=== PATIENT | female | born 1975 | race Caucasian/White ===

== ENCOUNTER 2022-06-17 09:26 | Outpatient (CLI) | payer BC, SELFPAY ==
[2022-06-17 09:47] LABS: Basophils Percent Auto 0.1 % (0.2-1.2); Eosinophils Percent Auto 0.4 % (0-4.4); Hematocrit 44.3 % (37.0-47.0); Hemoglobin 14.5 g/dL (12.0-15.0); Immature Granulocyte Absolute 0.01 K/mm3 (0.00-0.031); Immature Granulocyte Percent A 0.1 % (0-0.5); Lymphocytes Absolute Auto 2.61 K/mm3 (0.9-3.2); Lymphocytes Percent Auto 33.3 % (18.3-44.2); Mean Corpuscular HGB Conc 32.7 g/dl (32-36); Mean Corpuscular Hemoglobin 29.5 pg (26-34); Mean Corpuscular Volume 90.2 fl (80-100); Mean Platelet Volume 7.7 fl (7.4-10.4); Monocytes Absolute Auto 0.6 K/mm3 (0.1-0.6); Monocytes Percent Auto 7.2 % (2.6-8.5); Neutrophils Absolute Auto 4.6 K/mm3 (1.3-6.7); Neutrophils Percent Auto 58.9 % (45.5-73.1); Platelet Count Result 369 k/mm3 (150-375); Red Blood Count 4.91 M/mm3 (4.2-5.4); Red Cell Distribution Width 13.1 % (11.5-14.5); White Blood Count 7.8 K/mm3 (4.5-10.0)
[2022-06-17 11:05] LABS: Iron 53 ug/dL (37-170)
[2022-06-17 11:07] LABS: Alanine Aminotransferase 28 U/L (6-35); Albumin Level 4.7 g/dL (3.5-5.1); Alkaline Phosphatase 105 U/L (38-126); Anion Gap 7 mmol/L (8-16); Aspartate Amino Transferase 22 U/L (14-36); Bilirubin,Total 0.6 mg/dL (0.2-1.3); Blood Urea Nitrogen 16 mg/dL (7-17); Calcium 9.8 mg/dL (8.4-10.2); Carbon Dioxide 31 mmol/L (22-30); Chloride 99 mmol/L (98-107); Estimated Glomerular Filt Rate > 60; Glucose 153 mg/dL (65-110); Lactate Dehydrogenase 150 U/L (120-246); Potassium 4.5 mmol/L (3.4-5.0); Sodium 137 mmol/L (137-145)
[2022-06-17 11:15] LABS: Percent Iron Saturation 15 % (20-50)
[2022-06-17 12:13] LABS: Folic Acid 7.1 ng/mL (2.76->20)
[2022-06-22 11:18] LABS: Methylmalonic Acid 120 nmol/L (87-318)
== END 2022-06-17 09:27 | disposition home or self-care (01) ==
PROVIDERS: PCP Internal Medicine; Visit Provider Internal Medicine Hematology & Oncology
DX: D64.9 Anemia, unspecified (principal)
CPT/HCPCS: 36415; 80053; 82607; 82728; 82746; 83540; 83550; 83615; 83921; 84443; 85025

== ENCOUNTER 2022-07-21 15:37 | Outpatient (CLI) | payer BC, SELFPAY ==
[2022-07-21 16:43] LABS: IFOB Positive Control Positive; Immunochemical Fecal Occult Bl Negative (N)
== END 2022-07-21 15:38 | disposition home or self-care (01) ==
LOC: ANHLAB 15:39
PROVIDERS: PCP Internal Medicine; Visit Provider Internal Medicine Hematology & Oncology
DX: D64.9 Anemia, unspecified (principal)
CPT/HCPCS: 82274

== ENCOUNTER 2023-01-04 09:18 | Outpatient (CLI) | payer BC, SELFPAY ==
--- NOTE | ~2023-01-04 | CT_ITS ---
CT of the Abdomen and Pelvis: Indication: Renal vein thrombosis Technique: 2.5 mm axial scans were obtained through the abdomen and pelvis following intravenous adm inistration of 100 cc of Omnipaque 350. Dose reduction technique was used on this scan by utilizing a utomated exposure control and iterative reconstruction technique. The dose-length product (DLP) was 1 575.39 mGy-cm. Findings: Scans through the lung bases are unremarkable. The liver, spleen, pancreas, gallbladder, adrenals and kidneys are within normal limits. No evidence for renal vein thrombosis. No evidence of aortic aneurysm. No lymphadenopathy. No bowel obstruction or bowel wall thickening. There is no evidence to suggest acute appendicitis. Images through the pelvis were performed. Urinary bladder unremarkable. IUD in place. 3.9 cm left ova scottie cyst present. No ascites. Impression: No evidence for renal vein thrombosis on the current exam. 3.9 cm left ovarian cyst. Reviewed, dictated and finalized at [facility]. Impression: No evidence for renal vein thrombosis on the current exam. 3.9 cm left ovarian cyst.
[2023-01-04 10:28] LABS: Estimated Glomerular Filt Rate > 60
[2023-01-04 12:21] LABS: Alanine Aminotransferase 70 U/L (6-35); Albumin Level 4.8 g/dL (3.5-5.1); Alkaline Phosphatase 111 U/L (38-126); Anion Gap 10 mmol/L (8-16); Aspartate Amino Transferase 45 U/L (14-36); Bilirubin,Total 0.6 mg/dL (0.2-1.3); Blood Urea Nitrogen 19 mg/dL (7-17); Calcium 9.7 mg/dL (8.4-10.2); Carbon Dioxide 26 mmol/L (22-30); Chloride 101 mmol/L (98-107); Cholesterol 140 mg/dL (0-200); Estimated Glomerular Filt Rate > 60; Glucose 105 mg/dL (65-110); HDL Direct 51 mg/dL; Potassium 4.2 mmol/L (3.4-5.0); Sodium 137 mmol/L (137-145); Triglycerides 108 mg/dL (<150)
[2023-01-04 12:33] LABS: LDL Cholesterol Direct 67 mg/dL
[2023-01-04 14:34] LABS: Hemoglobin A1C 6.2 % (<5.7)
== END 2023-01-04 09:19 | disposition home or self-care (01) ==
PROVIDERS: PCP Internal Medicine; Visit Provider Internal Medicine Hematology & Oncology
DX: E55.9 Vitamin D deficiency, unspecified (principal); E78.5 Hyperlipidemia, unspecified; E11.9 Type 2 diabetes mellitus without complications; I82.3 Embolism and thrombosis of renal vein; N83.202 Unspecified ovarian cyst, left side
CPT/HCPCS: 74177; 80053; 80061; 82306; 83036; 84443; Q9967

== ENCOUNTER 2023-02-16 13:32 | Outpatient (CLI) | payer BC, SELFPAY ==
[2023-02-16 14:06] LABS: Basophils Percent Auto 0.3 % (0.2-1.2); Eosinophils Absolute Auto 0.1 K/mm3 (0-0.3); Eosinophils Percent Auto 1.2 % (0-4.4); Hematocrit 45.4 % (37.0-47.0); Hemoglobin 15.2 g/dL (12.0-15.0); Immature Granulocyte Absolute 0.01 K/mm3 (0.00-0.031); Immature Granulocyte Percent A 0.1 % (0-0.5); Lymphocytes Absolute Auto 2.43 K/mm3 (0.9-3.2); Lymphocytes Percent Auto 32.3 % (18.3-44.2); Mean Corpuscular HGB Conc 33.5 g/dl (32-36); Mean Corpuscular Hemoglobin 30.6 pg (26-34); Mean Corpuscular Volume 91.3 fl (80-100); Mean Platelet Volume 7.7 fl (7.4-10.4); Monocytes Absolute Auto 0.6 K/mm3 (0.1-0.6); Monocytes Percent Auto 8.1 % (2.6-8.5); Neutrophils Absolute Auto 4.4 K/mm3 (1.3-6.7); Platelet Count Result 335 k/mm3 (150-375); Red Blood Count 4.97 M/mm3 (4.2-5.4); White Blood Count 7.5 K/mm3 (4.5-10.0)
[2023-02-16 17:08] LABS: Immunoglobulin A 376 mg/dL (70-400); Immunoglobulin G 1374 mg/dL (700-1600); Immunoglobulin M 208 mg/dL (40-230)
[2023-02-18 19:33] LABS: Homocysteine 5.9 umol/L (<10.4)
[2023-02-18 21:00] LABS: Kappa\\Lambda Light Chains 1.63 (0.26-1.65); Lambda Light Chain 13.3 mg/L (5.7-26.3)
[2023-02-18 21:13] LABS: Lupus dRVVT Screen 35 sec (<=45); PTT-LA Screen 39 sec (<=40)
[2023-02-19 21:42] LABS: Antithrombin III Activity 128 % normal (80-135)
[2023-02-21 17:11] LABS: Albumin 3.8 g/dL (3.8-4.8); Alpha 1 Globulin 0.3 g/dL (0.2-0.3); Alpha 2 Globulin 0.9 g/dL (0.5-0.9); Beta 1 Globulin 0.6 g/dL (0.4-0.6); Gamma Globulin 1.4 g/dL (0.8-1.7); Protein, Total 7.5 g/dL (6.1-8.1)
[2023-02-22 15:23] LABS: Factor V (Leiden) Mutation NEGATIVE
== END 2023-02-16 13:33 | disposition home or self-care (01) ==
LOC: ANHLAB 13:35
PROVIDERS: PCP Internal Medicine; Visit Provider Internal Medicine Hematology & Oncology
DX: I82.3 Embolism and thrombosis of renal vein (principal); R77.9 Abnormality of plasma protein, unspecified
CPT/HCPCS: 36415; 81240; 81241; 82784; 83090; 83883; 84155; 84165; 85025; 85300; 85303; 85306; 85613; 85730; 86146

== ENCOUNTER 2023-06-28 15:22 | Outpatient (CLI) | payer BC, SELFPAY ==
[2023-06-28 15:43] LABS: Basophils Percent Auto 0.2 % (0.2-1.2); Eosinophils Absolute Auto 0.1 K/mm3 (0-0.3); Eosinophils Percent Auto 0.8 % (0-4.4); Hematocrit 41.1 % (37.0-47.0); Hemoglobin 13.8 g/dL (12.0-15.0); Immature Granulocyte Absolute 0.02 K/mm3 (0.00-0.031); Immature Granulocyte Percent A 0.2 % (0-0.5); Lymphocytes Absolute Auto 2.93 K/mm3 (0.9-3.2); Lymphocytes Percent Auto 31.5 % (18.3-44.2); Mean Corpuscular HGB Conc 33.6 g/dl (32-36); Mean Corpuscular Volume 92.4 fl (80-100); Mean Platelet Volume 7.7 fl (7.4-10.4); Monocytes Absolute Auto 0.7 K/mm3 (0.1-0.6); Monocytes Percent Auto 7.4 % (2.6-8.5); Neutrophils Absolute Auto 5.6 K/mm3 (1.3-6.7); Neutrophils Percent Auto 59.9 % (45.5-73.1); Platelet Count Result 295 k/mm3 (150-375); Red Blood Count 4.45 M/mm3 (4.2-5.4); Red Cell Distribution Width 12.6 % (11.5-14.5); White Blood Count 9.3 K/mm3 (4.5-10.0)
[2023-06-30 11:48] LABS: Homocysteine 6.9 umol/L (<10.4)
== END 2023-06-28 15:23 | disposition home or self-care (01) ==
LOC: ANHLAB 15:24
PROVIDERS: PCP Internal Medicine; Visit Provider Internal Medicine Hematology & Oncology
DX: I82.3 Embolism and thrombosis of renal vein (principal)
CPT/HCPCS: 36415; 83090; 85025